=== PATIENT | male | born 1970 | race Caucasian/White ===

== ENCOUNTER 2024-09-25 00:19 | Day surgery (SDC) | payer BC, SELFPAY ==
[2024-09-22 11:00] VITALS: BMI 42.7
--- OUTSIDE RECORDS SUMMARY | 2024-09-25 00:24 | XMS_ITS | Clinical Summary ---
Author Organization [facility] Address [address] [place] [address] Care Team Providers Care Nursing Home Social Worker Name Role Phone Steve Lilly MD Primary Care Provider [phone] Kuldeep Snow MD Unavailable Allergies No known active allergies Medications atorvastatin (LIPITOR) 20 mg tablet Take 1 tablet (20 mg total) by mouth daily 0 04/28/2018 Active folic acid (FOLVITE) 1 mg tablet Take 1 tablet (1 mg total) by mouth daily Active Farxiga 10 mg tablet Take 1 tablet (10 mg total) by mouth daily 09/07/2021 Active thiamine (VITAMIN B1) 100 mg tabletIndication s:Thiamine Deficiency Take 1 tablet (100 mg total) by mouth daily 30 tablet 04/13/2023 Active spironolactone (ALDACTONE) 25 mg tablet Take 1 tablet (25 mg total) by mouth daily 06/22/2023 Active oxyCODONE-acetam inophen (PERCOCET) 10-325 mg per tablet Take 1 tablet by mouth every 4 (four) hours as needed 07/01/2023 Active digoxin (LANOXIN) 250 mcg (0.25 mg) tablet TAKE 1 TABLET BY MOUTH EVERY DAY 90 tablet 05/11/2024 Active apixaban (Eliquis) 5 mg tablet TAKE 1 TABLET BY MOUTH TWICE DAILY 60 tablet 2 05/11/2024 Active furosemide (LASIX) 40 mg tablet Take 1 tablet (40 mg total) by mouth daily 08/10/2024 Active metoprolol tartrate (LOPRESSOR) 50 mg immediate release tablet Take 1 tablet (50 mg total) by mouth 2 (two) times a day 06/17/2024 Active Active Problems Problem Noted Date Diagnosed Date Morbid (severe) obesity due to excess calories 0 07/13/2023 Body mass index 40.0-44.9, adult ([facility]) 07/13 Closed traumatic fracture of ribs of right side with pneumothorax 04/09/2023 Paroxysmal atrial fibrillation 05/28/2022 Syncope and collapse 05/28/2022 Orthostasis 05/28/2022 Chronic systolic heart failure 05/28/2022 NICM (nonischemic cardiomyopathy) 05/28/2022 Esophageal spasm 03/25/2022 Food impaction of esophagus 03/25/2022 Effusion of right knee 03/25/2022 Sprain of medial collateral ligament of right kn ee 03/25/2022 Dizziness 01/06/2022 Right-sided heart failure 12/17/2021 Overview (12/17/2021): Added automatically from request for surgery [id number] Dyspnea on exertion 01/21/2020 Acute pulmonary edema 01/21/2020 Elevated AST (SGOT) 01/21/2020 Weight gain with edema 01/21/2020 Heavy alcohol use 01/21/2020 Macrocytosis 01/21/2020 Alcohol-induced polyneuropathy 07/28/2018 Overview (01/21/2020): Note: Unchanged Esophageal reflux 07/28/2018 Overview (01/21/2020): Note: Unchanged Epigastric pain 05/17/2018 Assessment & Plan (05/17/2018 2:46 PM OPERATING ROOM REGISTERED NURSE): Reviewed prior egd and chart. Had duodenitis and now says that he ran out of the protonix and cannot live without it since he cant eat and has severe abd pain. He desires refill. Will refill the protonix and return prn Morbid obesity with BMI of 40.0-44.9, adult 04/22 Hyperlipidemia associated with type 2 diabetes heraclio razo 04/27/2017 Overview (01/21/2020): Note: Unchanged Psoriasis 02/21/2013 Obstructive sleep apnea syndrome 07/25/2009 Hypertension associated with diabetes 10/09/2008 Encounters Date Type Department Care Team Description 08/29/2024 11:45 AM CDT Office Visit [facility] Medical [facility] Cardiology [address] [place] [address] Kuldeep Snow MD Hypertension associated with diabetes (HCC) (Primary Dx); Hyperlipidemia associated with type 2 diabetes mellitus (HCC); Paroxysmal atrial fibrillation (HCC); NICM (nonischemic cardiomyopathy) (HCC) 08/29/2024 Telephone [facility] Cardiology [address] [facility] [address] [place] [phone] Kuldeep Snow MD 08/11/2024 1:30 PM OPERATING ROOM REGISTERED NURSE Office Visit [facility] Cardiology [address] [place] [address] Kuldeep Snow MD NICM (nonischemic cardiomyopathy) (HCC) (Primary Dx); Hypertension associated with diabetes (HCC); Hyperlipidemia associated with type 2 diabetes mellitus (HCC); Paroxysmal atrial fibrillation (HCC) from Last 3 Months Surgical History Surgery Date Site/Laterality Comments CARDIAC CATHETERIZATION LUMBAR PUNCTURE WO INJECTION, DIAGNOSTIC 04/20/2023 N/A Medical History Medical History Date Comments HTN (hypertension) HLD (hyperlipidemia) Diabetes mellitus type 2 in obese Peripheral neuropathy Morbid obesity (HCC) Sleep apnea On CPAP therapy GERD (gastroesophageal reflux disease) Psoriasis Alcohol abuse Syncope Atrial fibrillation (HCC) Family History Medical History Relation Name Comments Prostate cancer Father Heart disease Mother Relation Name Status Comments Father Mother Alive Social History Tobacco Use Types Packs/Day Years Used Date Smoking Tobacco: Never Smokeless Tobacco: Never Tobacco Cessation:Counseling Given: Not Answered Alcohol Use Standard Drinks/Week Comments Yes 0 (1 standard drink = 0.6 oz pure alcohol) 4 alcoholic drinks per day routinely PHQ-2 Answer Date Recorded PHQ-2 Score 0 02/09/2019 Personal Safety Answer Date Recorded Have you ever been in or are you currently in a harmful physical or emotional relationship or is someone making you feel afraid or unsafe? Denies 04/09/2023 Sex and Gender Information Value Date Recorded Sex Assigned at Not on file Legal Sex Male 2:19 PM OPERATING ROOM REGISTERED NURSE Gender Identity Not on file Sexual Orientation Not on file Obstetrics History Last Filed Vital Signs Vital Sign Reading Time Taken Comments Blood Pressure 104/68 08/29/2024 11:56 AM CDT Pulse 92 08/29/2024 11:56 AM CDT Temperature 36.3 C (97.4 F) 04/12/2023 11:21 AM CDT Respiratory Rate 16 04/12/2023 11:21 AM CDT Oxygen Saturation 94% 08/29/2024 11:56 AM CDT Inhaled Oxygen Concentration - - Weight 147.4 kg (325 lb) 08/29/2024 11:56 AM CDT Height 185.4 cm (6' 1 ) 08/29/2024 11:56 AM CDT Body Mass Index 42.88 08/29/2024 11:56 AM CDT Plan of Treatment Health Maintenance Due Date Last Done Comments Albumin Creatinine Ratio, Urine 1969 Colon Cancer Screening-Colonoscopy 1969 Prostate Cancer Screening-PSA 1969 Dilated Eye Exam 1969 Foot Exam 1969 DTaP/Tdap/Td Vaccine (1 - Tdap) 1980 Hepatitis B Screening 1987 Regular Well Visit/Exam 18-64 1987 Pneumococcal vaccine <65 (1 of 2 - PCV) 1988 Zoster Vaccine (1 of 2) 2019 Depression Screening 05/17/2019 05/17/2018, 05/17/20 18 Hemoglobin A1C 07/24/2020 01/22/2020 Covid-19 Vaccine (3 - 2023-2 5 season) 2024 08/06/2021, 01/18/2021 eGFR 04/10/2024 04/10/2023, 03/22, 03/25/2022, Additional history exists Influenza Vaccine (Season Ended) 2025 Lipid Panel 05/23/2025 05/23/2024, 03/22, 05/28/2022, Additional history exists Hepatitis C Screening Completed 01/22/2020 Medical Devices Implanted Type Area Instructional Leader Device Identifier Shelf Expiration Date Model / Serial / Lot [employer] Angio-Seal Vip 6fr Closere Device [id number] - [id number] Implanted:Qty : 1 on 01/07/2022 by Conrad Jaeger MD at [facility] Other - see comments Right: Maureen GiraldoFineline 10/18/2022 [id number] / / [id number] Procedures Procedure Name Priority Date/Time Associated Diagnosis Comments ELECTROCARDIOGRAM REPORT Routine 025 2:22 PM OPERATING ROOM REGISTERED NURSE Paroxysmal atrial fibrillation (HCC) POCT LIPID PANEL Routine 05/23/2024 2:12 PM OPERATING ROOM REGISTERED NURSE Hyperlipidemia associated with type 2 diabetes mellitus (HCC) EGFR Routine 04/10/2023 5:01 AM CDT HEPATITIS PANEL, ACUTE Routine 0 10:15 AM CDT HEMOGLOBIN A1C Routine 01/22/2020 5:48 AM CDT from Last 3 Months or Most Recently Relevant to Health Maintenance Results * Electrocardiogram Report (08/11/2024 2:22 PM OPERATING ROOM REGISTERED NURSE) Kuldeep Snow MD ECG ORDERABLES Final Res ult * POCT lipid panel (05/23/2024 2:12 PM OPERATING ROOM REGISTERED NURSE) Cholesterol, POC 138 mg/dL HDL, POC 43 mg/dL Triglycerides, POC 171 mg/dL LDL Cholesterol POC 61 mg/dL Chol/HDL Ratio, POC 3.2 Non-HDL Cholesterol, POC 95 mg/dL Cholesterol Total, POC 138 mg/dL Capillary blood 05/23/2024 2 :12 PM OPERATING ROOM REGISTERED NURSE Kuldeep Snow MD POINT OF CARE TEST ORDERA BLES Final Result * eGFR (04/10/2023 5:01 AM CDT) eGFR >90 90 - 130 mL/min/1. 73 m2 Comment: Interpretive Data Reference Interval Normal >/= 90 mL/min/1.73m2 Mildly decreased* 60 - 89 mL/min/1.73m2 Mildly to moderately decreased 45 - 59 mL/min/1.73m2 Moderately to severely decreased 30 - 44 mL/min/1.73m2 Severely decreased 15 - 29 mL/min/1.73m2 Kidney Failure < 15 mL/min/1.73m2 *Relative to young adult level Estimated glomerular filtration rate is determined by the 2020 CKD-EPI equation recommended by the National Kidney Foundation (A Unifying Approach to GFR Estimation: Recommendations of the NKF-ASK Task Force on Reassessing the Inclusion of Race in Diagnosing Kidney Disease, JASN 2020). The CKD-EPI equation should not be used for patients with unstable renal function and has not been validated in children and those over 70. Current interpretive data was last reviewed 2021. Blood 04/10/2023 5:01 AM CDT 04/10/2023 5:28 AM CDT us Lino Mckenna MD LAB BLOOD ORDERABLES Qi mednosa Result [facility] Department [place] [address] * Hepatitis panel, acute (01/22/2020 10:15 AM CDT) Hep A IgM Nonreactive Nonreactive [facility] Comment: Interpretive Data: If Hep A IgM Ab is reported as Equivocal, a new sample should be drawn in two weeks for testing. Current interpretive data was last revised on 19. Hep B core IgM Nonreactive Nonreactive [facility] Comment: Interpretive Data If HepB Core IgM Ab is reported as Equivocal, a new sample should be drawn in two weeks for testing. Current interpretive data was last revised on 19. Hep C Ab Nonreactive Nonreactive [facility] Comment: Interpretive Data Nonreactive: Antibodies to HCV not detected. Does NOT exclude the possibility of recent exposure to HCV. Equivocal: Equivocal for HCV antibodies. Supplemental molecular testing will be automatically performed to determine infection status in accordance with current CDC screening recommendations. Reactive: Positive for HCV antibodies. This may represent current or past HCV infection. Supplemental molecular testing will be automatically performed to determine current infection status in accordance with current CDC screening recommendations. Interpretive data was last revised on 2019. HepBsAg Nonreactive Nonreactive [facility] Blood specimen (specimen) 01/22/2020 10:15 AM CDT 01/22/2020 11:17 AM CDT Daniel Gunn MD LAB MICROBIOLOGY - GENER AL ORDERABLES Final Result Performing Organization Address [facility] de Phone Number [facility] [address] [facility] [place] [address] * (ABNORMAL) Hemoglobin A1c (01/22/2020 5:48 AM CDT) Hgb A1C 7.0(H) 4.0 - 5.6 % [facility] Estimated Average Glucose 154 mg/dL [facility] Comment: The ADA recommends reporting an estimated Average Glucose (eAG) with all Hemoglobin A1c results using the equation derived from a study of 507 normal and diabetic adults. Minority populations were underrepresented and children were not included. (Diabetes Care 31:1032-4382, 2008). The eAG is not equivalent to a fasting glucose. Blood specimen (specimen) 01/22/2020 5:48 AM CDT 01/22/2020 5:48 AM CDT Daniel Gunn MD LAB BLOOD ORDERABLES Fin al Result Performing Organization Address [facility] de Phone Number [facility] [address] [place] [address] from Last 3 Months or Most Recently Relevant to Health Maintenance Insurance [facility] [place] Advance Directives For more information, please contact: [phone] * Full Code (Latest Code Status on File) Date Activated Date Inactivated Comments 04/09/2023 12:20 PM 04/12/2023 8:07 PM * Full Code Date Activated Date Inactivated Comments 01/06/2022 4:24 PM 01/08/2022 9:22 PM * Full Code Date Activated Date Inactivated Comments 01/21/2020 7:29 PM 01/23/2020 3:28 PM Care Teams Nursing Home Social Worker Relationship Specialty Start Date End Date Steve Lilly MD [address] [place] [address] PCP - General 10/19/16 Kuldeep Snow MD [address] [address] Consulting Physician Cardiology 04/12/23
--- OUTSIDE RECORDS SUMMARY | 2024-09-25 00:24 | XMS_ITS | Referral Summary ---
Author Organization [facility] Address [address] [place] [address] Care Team Providers Care Hoe Runner Name Role Phone Steve Lilly MD Primary Care Provider Kuldeep Snow MD Unavailable Encounters Date Type Department Care Team Description 08/29/2024 Telephone [facility] Medical [facility] Cardiology [address] [facility] [address] [place] [phone] uKldeep Snow MD 08/29/2024 11:45 AM CDT Office Visit [facility] Cardiology [address] [place] [address] [address] [place] [phone] Kuldeep Snow MD Hypertension associated with diabetes (HCC) (Primary Dx); Hyperlipidemia associated with type 2 diabetes mellitus (HCC); Paroxysmal atrial fibrillation (HCC); NICM (nonischemic cardiomyopathy) (HCC) 08/11/2024 1:30 PM CAGE LOADER Office Visit [facility] Cardiology [address] [place] [address] [address] [place] [phone] Kuldeep Snow MD NICM (nonischemic cardiomyopathy) (HCC) (Primary Dx); Hypertension associated with diabetes (HCC); Hyperlipidemia associated with type 2 diabetes mellitus (HCC); Paroxysmal atrial fibrillation (HCC) from Last 3 Months Allergies No known active allergies Medications atorvastatin [...] 0 07/13/2023 Body mass index 40.0-44.9, adult ([facility]) 07/13 Closed traumatic fracture of ribs of [...] (12/17/2021): Added automatically from request for surgery [id number] Dyspnea on exertion 01/21/2020 Acute pulmonary edema 01/21/2020 Elevated AST (SGOT) 01/21/2020 Weight gain with edema 01/21/2020 Heavy alcohol use 01/21/2020 Macrocytosis 01/21/2020 Alcohol-induced polyneuropathy 07/28/2018 Overview (01/21/2020): Note: Unchanged Esophageal reflux 07/28/2018 Overview (01/21/2020): Note: Unchanged Epigastric pain 05/17/2018 Assessment & Plan (05/17/2018 2:46 PM CAGE LOADER): Reviewed prior egd and chart. Had duodenitis [...] syndrome 07/25/2009 Hypertension associated with diabetes 10/09/2008 Social History Tobacco Use Types Packs/Day Years [...] on file Legal Sex Male 2:19 PM CAGE LOADER Gender Identity Not on file Sexual Orientation Not on file Last Filed Vital Signs Vital Sign Reading [...] 08/29/2024 11:56 AM CDT Plan of Treatment Not on file Medical Devices Implanted Type Area Outpatient Interviewing Clerk Device Identifier Shelf Expiration Date Model / Serial / Lot [employer] Angio-Seal Vip 6fr Closere Device [id number] - [id number] Implanted:Qty : 1 on 01/07/2022 by Conrad Jaeger MD at [facility] Other - see comments Right: Groin [employer] 10/18/2022 [id number] / / [id number] Procedures Procedure Name Priority Date/Time Associated Diagnosis Comments ELECTROCARDIOGRAM REPORT Routine 025 2:22 PM CAGE LOADER Paroxysmal atrial fibrillation (HCC) POCT LIPID PANEL Routine 05/23/2024 2:12 PM CAGE LOADER Hyperlipidemia associated with type 2 diabetes mellitus (HCC) EGFR Routine 04/10/2023 5:01 AM CDT HEPATITIS PANEL, ACUTE Routine 0 10:15 AM CDT HEMOGLOBIN A1C Routine 01/22/2020 5:48 AM CDT from Last 3 Months or Most Recently Relevant to Health Maintenance Results * Electrocardiogram Report (08/11/2024 2:22 PM CAGE LOADER) us Kuldeep Snow MD ECG ORDERABLES Final Res ult * POCT lipid panel (05/23/2024 2:12 PM CAGE LOADER) Cholesterol, POC 138 mg/dL HDL, POC 43 mg/dL Triglycerides, POC 171 mg/dL LDL Cholesterol POC 61 mg/dL Chol/HDL Ratio, POC 3.2 Non-HDL Cholesterol, POC 95 mg/dL Cholesterol Total, POC 138 mg/dL Capillary blood 05/23/2024 2 :12 PM CAGE LOADER us Kuldeep Snow MD POINT OF CARE TEST [...] Lino Mckenna MD LAB BLOOD ORDERABLES Qi l Result [facility] Department [place] [address] * Hepatitis panel, acute (01/22/2020 10:15 AM CDT) Hep A IgM Nonreactive Nonreactive [facility] Comment: Interpretive Data: If Hep A IgM Ab is reported as Equivocal, a new sample should be drawn in two weeks for testing. Current interpretive data was last revised on 19. Hep B core IgM Nonreactive Nonreactive [facility] Comment: Interpretive Data If HepB Core IgM Ab is reported as Equivocal, a new sample should be drawn in two weeks for testing. Current interpretive data was last revised on 19. Hep C Ab Nonreactive Nonreactive [facility] Comment: Interpretive Data Nonreactive: Antibodies to HCV [...] last revised on 2019. HepBsAg Nonreactive Nonreactive [facility] Blood specimen (specimen) 01/22/2020 10:15 AM CDT 01/22/2020 11:17 AM CDT Daniel Gunn MD LAB MICROBIOLOGY - GENER AL ORDERABLES Final Result Performing Organization Address [facility] de Phone Number [facility] [address] [place] [address] * (ABNORMAL) Hemoglobin A1c (01/22/2020 5:48 AM CDT) Hgb A1C 7.0(H) 4.0 - 5.6 % [facility] Estimated Average Glucose 154 mg/dL [facility] Comment: The ADA recommends reporting an estimated Average Glucose (eAG) with all Hemoglobin A1c results using the equation derived from a study of 507 normal and diabetic adults. Minority populations were underrepresented and children were not included. (Diabetes Care 31:9744-2969, 2008). The eAG is not equivalent to a fasting glucose. Blood specimen (specimen) 01/22/2020 5:48 AM CDT 01/22/2020 5:48 AM CDT Daniel Gunn MD LAB BLOOD ORDERABLES Fin al Result Performing Organization Address [facility] Co de Phone Number [facility] [address] [place] [address] from Last 3 Months or Most Recently Relevant to Health Maintenance [place] Advance Directives For more information, please contact: [phone] * Full Code (Latest Code Status on File) Date Activated Date Inactivated Comments 04/09/2023 12:20 PM 04/12/2023 8:07 PM * Full Code Date Activated Date Inactivated Comments 01/06/2022 4:24 PM 01/08/2022 9:22 PM * Full Code Date Activated Date Inactivated Comments 01/21/2020 7:29 PM 01/23/2020 3:28 PM Care Teams Hoe Runner Relationship Specialty Start Date End Date tSeve Lilly MD [address] [facility] [place] [address] PCP - General 10/19/16 [place] [address] [place] [address] [place] [address] Consulting Physician Cardiology 04/12/23
--- OUTSIDE RECORDS SUMMARY | 2024-09-25 00:24 | XMS_ITS | Encounter Summary ---
Author Organization [facility] Address [address] [facility] [place] [address] Phone Care Team Providers Care Lap Layer Name Role Phone Steve Lilly MD Primary Care Provider Hayde Otto APRN, CONSULTANT RN Unavailable [phone] Reason for Visit * Reason Comments Medication Refill Encounter Details Date Type Department Care Team (Late st Contact Info) Description 05/28/2022 Refill [facility] - Neurology - [place] [address] [place] [phone] Hayde Otto APRN, CONSULTANT RN [address] [place] [address] Medication Refill Social History Tobacco Use Types Packs/Day Years Used Date Smoking Tobacco: Never Smokeless Tobacco: Current Alcohol Use Standard Drinks/Week Comments Yes 0 (1 standard drink = 0.6 oz pure alcohol) Patient used to drink alot, but now only about 8-10 oz before bed. Sexually Active Control Partners Comments Not Currently Female Sex and Gender Information Value Date Recorded Sex Assigned at Not on file Legal Sex Male 3:19 PM CDT Gender Identity Not on file Sexual Orientation Not on file documented as of this encounter Plan of Treatment Not on file documented as of this encounter Goals Goal Patient Goal Type Associated Problems Recent Progress Patient-Stated? Author ANXIETY Anxiety On track(2020 4:11 PM CDT) No Silvia Cabezas, DELIVERY TABLE OPERATOR Note: to have reduction of anxiety and depression symptoms. Goal Reviewed with: patient today Readiness to change: Ready to change Department associated with goal: [facility] Steps to achieve goal: to attend, at least twice monthly, counseling sessions for 10-12 sessions. to identify, verbalize and process at least three contributing factors/triggers to anxiety and depression. to identify and verbalize at least three actions/skills to prevent and/or cope with anxiety and depression. to put into action, at least one time weekly, for one month, an action/skill to prevent and or cope with anxiety and depression. I need to get back to driving. Behavioral Health On track(2020 4:11 PM CDT) Yes Irene Bah LCSW Note: Goal Reviewed with: patient today Readiness to change: Ready to change Department associated with goal: [facility] Steps to achieve goal: will identify at least two coping skills/activities/habits that have helped to manage anxiety in the past. will identify at least three new coping skills/activities/habits that may help to prevent and/or cope with anxiety. 3. will identify a plan to implement coping skills and follow this plan for two weeks and evaluate the impact on anxiety. 4. Will attend individual and/or group sessions for 10-12 weeks or as treatment plans need to be addressed. documented as of this encounter Visit Diagnoses Diagnosis Diabetic polyneuropathy associated with type 2 diabetes mellitus (HCC) documented in this encounter Care Teams Lap Layer Relationship Specialty Start Date End Date Steve Lilly MD [address] [place] [address] PCP - General Family Medicine 11/21/20 Hayde Otto APRN, CONSULTANT RN [address] [place] [address] Nurse Practitioner Advanced Practice Nurse 03/31/22 documented as of this encounter
--- OUTSIDE RECORDS SUMMARY | 2024-09-25 00:24 | XMS_ITS | Clinical Summary ---
Author Organization [facility] Address [address] [place] [id number] Care Team Providers Care Precipitator Operator Name Role Phone None, Provider MD Primary Care Provider Unavaila ble Allergies No known active allergies Medications apixaban (ELIQUIS) 5 MG tablet Take 1 tablet (5 mg total) by mouth 2 (two) times daily. Active spironolactone (ALDACTONE) 25 MG tablet Take 1 tablet (25 mg total) by mouth daily. Active folic acid (FOLVITE) 1 MG tablet Take 1 tablet (1 mg total) by mouth daily. Active insulin glargine (LANTUS) 100 UNIT/ML injection (VIAL) Inject 20 Units into the skin daily. 10 mL 1 05/05/20 Active insulin lispro (HUMALOG) 100 UNIT/ML injection (VIAL) Inject 0-6 Units into the skin 4 (four) times daily before meals and nightly. From sliding scale insulin subcut med order set - For TDI less than 30 units Blood Glucose: (Less than 70, Initiate Hypoglycemia Standing Orders) (70 - 149, administer 0 units) (150 - 199, administer 1 units) (200 - 249, administer 2 units) (250 - 299, administer 3 units) (300 - 349, administer 4 units) (Greater than 349, administer 6 units and Call Physician) 10 mL 1 05/05/20 Active ipratropium-albute rol (DUONEB) 0.5-2.5 (3) MG/3ML Solution Take 3 mLs by nebulization every 4 (four) hours as needed. 360 mL 1 05/05/20 23 Active digoxin (LANOXIN) 0.125 MG tablet Take 1 tablet (0.125 mg total) by mouth daily. 30 tablet 1 05/05/20 23 Active OLANZapine (ZYPREXA ZYDIS) 5 MG TABLET DISPERSIBLE disintegrating tablet Take 1 tablet (5 mg total) by mouth every 6 (six) hours as needed for Agitation. 10 each 05/05/20 Active traMADol (ULTRAM) 50 MG tabletIndications: Chronic Pain Take 1 tablet (50 mg total) by mouth every 8 (eight) hours as needed for Pain. Indications: Chronic Pain 21 tablet 05/05/20 Active metoprolol tartrate (LOPRESSOR) 25 MG tablet Take 1 tablet (25 mg total) by mouth 2 (two) times daily. 60 tablet 1 05/05/20 Active multi vitamin/minerals (THERA-M ENHANCED) tablet Take 1 tablet by mouth daily. 30 tablet 1 05/05/20 Active torsemide (DEMADEX) 20 MG tablet Take 0.5 tablets (10 mg total) by mouth daily. 30 tablet 1 05/06/20 Active Active Problems Problem Noted Date Diagnosed Date Acute encephalopathy 04/17/2023 Social History Tobacco Use Types Packs/Day Years Used Date Smoking Tobacco: Former Cigarettes Smokeless Tobacco: Never [facility] Oppaities Answer Date Recorded In the past 12 months has [employer], [employer], or water [employer] threatened to shut off services in your home? No 05/03/2023 Humiliation, Afraid, Rape, and Kick questionnair e Answer Date Recorded Within the last year, have y ou been afraid of your partner or ex-partner? No 04/21/2023 Within the last year, have y ou been humiliated or emotionally abused in other ways by your partner or ex-partner? No Within the last year, have y ou been kicked, hit, slapped, or otherwise physically hurt by your partner or ex-partner? No 04/21/2023 Within the last year, have y ou been raped or forced to have any kind of sexual activity by your partner or ex-partner? No 04/21/2023 Overall Financial Resource Strain (CARDIA) Answe r Date Recorded How hard is it for you to pa y for the very basics like food, housing, medical care, and heating? Not hard at all 04/21/2023 Hunger Vital Sign Answer Date Recorded Within the past 12 months, y ou worried that your food would run out before you got the money to buy more. Never true 11/01/20 23 Within the past 12 months, t he food you bought just didn't last and you didn't have money to get more. Never true 04/21/2023 PRAPARE - Transportation Answer Date Re corded In the past 12 months, has l ack of transportation kept you from medical appointments or from getting medications? No 06/2022 In the past 12 months, has l ack of transportation kept you from meetings, work, or from getting things needed for daily living? No 04/21/2023 Housing Stability Vital Sign Answer Robel e Recorded In the last 12 months, was t here a time when you were not able to pay the mortgage or rent on time? No 04/21/2023 In the last 12 months, how many places have you lived? 1 04/21/2023 In the last 12 months, was t here a time when you did not have a steady place to sleep or slept in a long-term (including now)? No 04/21/2023 Sex and Gender Information Value Date Recorded Sex Assigned at Not on file Legal Sex Male 10:48 PM CDT Gender Identity Not on file Sexual Orientation Not on file Last Filed Vital Signs Vital Sign Reading Time Taken Comments Blood Pressure 129/63 05/07/2023 8:04 AM MULE DEVELOPER Pulse 84 05/07/2023 8:04 AM MULE DEVELOPER Temperature 36.7 C (98.1 F) 05/07/2023 8:04 AM MULE DEVELOPER Respiratory Rate 18 05/07/2023 8:04 AM MULE DEVELOPER Oxygen Saturation 93% 05/07/2023 8:04 AM MULE DEVELOPER Inhaled Oxygen Concentration - - Weight 155 kg (341 lb 11.4 oz) 05/06/2023 5:00 A M MULE DEVELOPER Height 182.9 cm (6' 0.01 ) 04/17/2023 4:21 AM CD T Body Mass Index 46.33 04/17/2023 4:21 AM CDT Plan of Treatment Health Maintenance Due Date Last Done Comments Colorectal Cancer Screening Colonoscopy (10 Years) 1969 Annual Physical 1972 Hepatitis C 1987 DTaP, Tdap and Td Vaccines ( 1 - Tdap) 1988 Hepatitis B Vaccines (1 of 3 - 19+ 3-dose series) 1988 Zoster Vaccines (1 of 2) 2019 COVID-19 Vaccine (3 2023-2 5 season) 2024 08/06/2021, 01/18/2021 Meningococcal B Vaccine Aged Out No l onger eligible based on patient's age to complete this topic Meningococcal Vaccine Aged Out No daniel catarina eligible based on patient's age to complete this topic Pneumococcal Vaccine: Pediatrics (0 to 5 Years) and At-Risk Patients (6 to 64 Years) Aged Out No longer eligible b ased on patient's age to complete this topic RSV Immunizations Under 20 Months Aged Out No longer eligible b ased on patient's age to complete this topic Goals Goal Patient Goal Type Associated Problems Recent Progress Patient-Stated? Author Patient will return to prior living situation and remain independent in ADLs upon discharge from hospital Lifestyle No Dawn Bills, RN Insurance Advance Directives Documents on File Type Date Recorded Patient Assistant Business Manager Expl anation Advance Directives and Living Will 08/09/2023 12:31 PM [employer] 02/17/23 * Full Code (Latest Code Status on File) Date Activated Date Inactivated Comments 04/17/2023 4:14 AM 05/07/2023 2:15 PM Care Teams Precipitator Operator Relationship Specialty Start Date End Date None, Provider, PCP - General UNKNOWN PHYSICIAN SPECIALTY 04/17/23
--- OUTSIDE RECORDS SUMMARY | 2024-09-25 00:24 | XMS_ITS | Clinical Summary ---
Author Organization [facility] Address [address] [place] [address] Phone Care Team Providers Care Sharepoint Analyst Name Role Phone Steve Lilly MD Primary Care Provider Hayde Otto APRN, RECLAIMER Unavailable [phone] Allergies No known active allergies Medications buPROPion (WELLBUTRIN) 300 MG TABLET SR 24 HR XL tablet Take 300 mg by mouth every morning. 10/29/19 21 Active atorvastatin (LIPITOR) 20 MG Tablet Take 20 mg by mouth daily. Active DULoxetine (CYMBALTA) [address] Particles Take 60 mg by mouth daily. Active Dapagliflozin Propanediol (Farxiga) 10 MG Tablet Take by mouth. Activ e folic acid (FOLVITE) 1 MG Tablet Take 1 mg by mouth daily. Active Semaglutide,0.25 or 0.5MG/DOS, (Ozempic, 0.25 or 0.5 MG/DOSE,) 2 MG/1.5ML Solution Pen-injector by Subcutaneous route. Active torsemide (DEMADEX) 20 MG Tablet Take 20 mg by mouth daily. Active Potassium Chloride ER (KLORCON) 20 MEQ Tablet Controlled Release TAKE 1 TABLET BY MOUTH TWICE A DAY 09/26/19 22 Active pregabalin (LYRICA) 200 MG CapsuleIndications :Diabetic polyneuropathy associated with type 2 diabetes mellitus (HCC) Take 200 mg by mouth 2 times daily. Active baclofen (LIORESAL) 5 MG Tablet TAKE 1 TABLET BY MOUTH EVERY 8 HOURS NEEDED TO RELAX THE ESOPHAGUS 03/25/20 Active chlordiazePOXIDE (LIBRIUM) 25 MG Capsule TAKE 1 CAPSULE BY MOUTH EVERYDAY AT BEDTIME 03/06/20 Active digoxin (LANOXIN) 250 MCG Tablet Take by mouth daily. 03/11/20 Active Entresto 24-26 MG Tablet Take 1 Tablet by mouth 2 times daily. 02/14/20 Active metoprolol Succinate (TOPROL-XL) 100 MG TABLET SR 24 HR Take 100 mg by mouth daily. 02/21/20 Active Eliquis 5 MG Tablet Take 5 mg by mouth 2 times daily. 03/10/20 Active pantoprazole (PROTONIX) 40 MG Tablet Delayed Response Take 40 mg by mouth daily. 03/25/20 Active amitriptyline (ELAVIL) 25 MG Tablet TAKE 1 TO 3 TABS BY MOUTH AT NIGHT NEEDED 04/07/20 Active buPROPion, Smoking Deter, (ZYBAN) 150 MG TABLET SR 12 HR Take 150 mg by mouth. Active Cyanocobalamin (VITAMIN B-12) 1000 MCG Tablet Take 1,000 mcg by mouth. Active potassium chloride SA (KLORCON M) 20 MEQ Tablet Controlled Release Take 20 mEq by mouth. Active spironolactone (ALDACTONE) 25 MG Tablet TAKE 1 TABLET (25 MG TOTAL) BY MOUTH DAILY. 02/14/20 Active triamcinolone (KENALOG) 0.1 % Cream Triamcinolone Acetonide 0.1% External Cream QTY: 45 gram Days: 30 Refills: 0 Written: 10/22/20 Patient Instructions: APPLY TO AFFECTED AREA ON HAND TWICE A DAY 10/23/19 Active Alpha-Lipoic Acid 600 MG CapsuleIndications :Diabetic polyneuropathy associated with type 2 diabetes mellitus (HCC) TAKE 1 CAPSULE BY MOUTH EVERY DAY 30 Capsule 2 05/29/20 Active midodrine (PROAMATINE) 2.5 MG Tablet Take 2.5 mg by mouth 3 times daily. 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 Family History Medical History Relation Name Comments Heart Attack Mother Alisa Relation Name Status Comments Brother Mitch Alive Father Ivan Alive Mother Alisa Alive Sister Hayde Alive Social History Tobacco Use Types Packs/Day Years Used Date Smoking Tobacco: Never Smokeless Tobacco: Current Tobacco Cessation:Ready to Q uit: Not Asked; Counseling Given: Not Answered Alcohol Use Standard Drinks/Week [...] Sign Reading Time Taken Comments Blood Pressure 120/80 06/02/2022 3:27 PM ELOCUTION TEACHER Pulse 72 06/02/2022 3:27 PM ELOCUTION TEACHER Temperature 36.5 C (97.7 F) 06/02/2022 3:27 PM ELOCUTION TEACHER Respiratory Rate 18 06/02/2022 3:27 PM ELOCUTION TEACHER Oxygen Saturation 96% 06/02/2022 3:27 PM ELOCUTION TEACHER Inhaled Oxygen Concentration - - Weight 146.7 kg (323 lb 8 oz) 06/02/2022 3:27 PM ELOCUTION TEACHER Height 185.4 cm (6' 1 ) 06/02/2022 3:27 PM ELOCUTION TEACHER Body Mass Index 42.68 06/02/2022 3:27 PM ELOCUTION TEACHER Plan of Treatment Health Maintenance Due Date Last Done Comments Hepatitis C Virus (HCV) Screening 1969 TdaP Immunization 1969 Hepatitis B Immunization (1 of 3 - 19+ 3-dose series) 1988 Colonoscopy 2014 Colorectal Cancer Screening 2014 Cologuard 2019 Immunochemical Fecal Occult Blood 2019 Pneumococcal Immunization (5 0+ years) (1 of 1 - PCV) 2019 Zoster Immunization (1 of 2) 2019 Influenza Immunization (#1) 2024 SARS-COV-2 Immunization (2023- season) 2024 08/06/2021, 01/18/2021 PSA Discussion 2024 Respiratory Syncytial Virus (RSV) Immunization (Adult) (1 - 1-dose 75+ series) 2044 Meningococcal Immunization (ACWY) Aged Out No longer eligible b ased on patient's age to complete this topic Rotavirus Immunization Aged Out No lo nger eligible based on patient's age to complete this topic Goals Goal Patient Goal Type Associated Problems Recent Progress Patient-Stated? Author ANXIETY Anxiety On track(2020 4:11 PM CDT) No Silvia Cabezas LCSW Note: to have reduction of anxiety and depression symptoms. Goal Reviewed with: patient today Readiness to change: Ready to change Department associated with goal: [facility] Steps to achieve goal: [...] Ready to change Department associated with goal: [facility] Steps to achieve goal: [...] as treatment plans need to be addressed. Procedures Procedure Name Priority Date/Time Associated Diagnosis Comments PULMONARY TEST 08/14/2024 12:00 AM ELOCUTION TEACHER from Last 3 Months Results * PULMONARY TEST (08/14/2024 12:00 AM ELOCUTION TEACHER) 08/14/2024 us Provider Scan PFT ORDERABLES Final Result SCAN from Last 3 Months Insurance [facility] Care Teams Sharepoint Analyst Relationship Specialty Start Date End Date Steve Lilly MD [address] [place] [id number] PCP - General Family Medicine 11/21/20 Hayde Otto, FIGURE REFINISHER AND REPAIRER, RECLAIMER [address] [place] [address] Nurse Practitioner Advanced Practice Nurse 03/31/22
--- OUTSIDE RECORDS SUMMARY | 2024-09-25 00:24 | XMS_ITS | Clinical Summary ---
Author Organization [facility] Address [address] [place] [address] Care Team Providers Care Labor Service Representative Name Role Phone Unavailable Primary Care Provider Unavailabl e Source Comments [facility],non-owned Affiliates and Associated Physician Practices is amultiple site organization consisting of ambulatory clinics and hospital sitesin [place], [place], [place] and [place]. This disclosure is being madepursuant to the Care Everywhere program and may not contain all information available regarding this patient. Last updated 18.[facility] Social History Tobacco Use Types Packs/Day Years Used Date Smoking Tobacco: Never Assessed Sex and Gender Information Value Date Recorded Sex Assigned at Not on file Gender Identity Not on file Sexual Orientation Not on file Plan of Treatment Health Maintenance Due Date Last Done Comments COLOGUARD (AGES 45-75) - COL ON CA SCREENING 1969 COLON MONITORING 1969 COLONOSCOPY - COLON CA SCREENING 1969 CT COLONOGRAPHY - COLON CA SCREENING 1969 Colorectal Cancer Screening 1969 FIT - COLON CA SCREENING 1969 FLEX SIG - COLON CA SCREENING 1969 LIPID TESTING 1969 HIV SCREENING 1984 HEPATITIS C SCREENING 04/12/1987 DTAP/TDAP/TD VACCINES (1 - Tdap) 1988 HEPATITIS B VACCINE (1 of 3 - 19+ 3-dose series) 1988 PNEUMOCOCCAL VACCINE 50+ (1 of 1 - PCV) 2019 ZOSTER VACCINE (1 of 2) 2019 COVID-19 VACCINE ( - 2023-2 5 season) 2024 INFLUENZA VACCINE (#1) 2024 DEPRESSION SCREENING 06/21/2024 HIB VACCINE Aged Out No longer eligi ble based on patient's age to complete this topic HPV VACCINE Aged Out No longer eligi ble based on patient's age to complete this topic MENINGOCOCCAL (Group B) VACC INE SHARED DECISION-MAKING Aged Out No longer eligibl e based on patient's age to complete this topic MENINGOCOCCAL GROUPS A/C/Y/W VACCINE Aged Out No longer eligible b ased on patient's age to complete this topic PNEUMOCOCCAL VACCINE Aged Out No long er eligible based on patient's age to complete this topic
--- NOTE | 2024-09-25 09:00 | ECG_ITS ---
Test Date: 2024-09-25 09:20:54 Measurements Intervals [place] Rate: 99 P: -87 NC: 273 QRS: -80 QRSD: 118 T: 74 QT: 364 QTc: 467 Interpretive Statements ATRIAL FLUTTER/TACHYCARDIA INCOMPLETE LEFT BUNDLE BRANCH BLOCK ANTEROLATERAL INFARCT, AGE INDETERMINATE INFERIOR INFARCT, AGE INDETERMINATE BORDERLINE ST-T WAVE ABNORMALITY- HIGH LATERAL LEADS BASELINE ARTIFACT- I, II, III, AVR, AVL, AVF, V1-V3 ABNORMAL ECG No previous ECG available for comparison Electronically Signed On 09-25-2024 09:27:03 CDT by Gualberto Chang D.O.
[2024-09-25 09:41] VITALS: BP 109/84; PULSE 91; RESP 14; TEMP 36.2; O2SAT 97
[2024-09-25 09:49] LABS: Anion Gap 10 mmol/L (4-12); Blood Urea Nitrogen 10 mg/dL (9-20); Calcium 9.2 mg/dL (8.4-10.2); Carbon Dioxide 28 mmol/L (22-30); Chloride 99 mmol/L (98-107); Estimated CRCL calculation 193 ml/min; Estimated Glomerular Filt Rate > 60; Glucose 154 mg/dL (65-110); Magnesium 1.8 mg/dL (1.6-2.3); Potassium 4.2 mmol/L (3.4-5.0); Sodium 137 mmol/L (137-145)
--- NOTE | 2024-09-25 10:10 | P.SEDATION_ITS ---
Moderate Sedation Note-Pt Data Patient Data Diagnosis: Atrial fibrillation Present Complaint: Atrial fibrillation Procedure to be performed/Plan: Electrical cardioversion Allergies Allergy/AdvReac Type Severity Reaction Status Date / Time No Known Allergies Allergy Verified 09/22/24 09:48 Home Medications ?Medication ?Instructions ?Recorded ?Confirmed ?Type apixaban 5 mg tablet (Eliquis) 5 mg PO BID 09/22/24 09/22/24 History atorvastatin 20 mg tablet 20 mg PO DAILY 09/22/24 09/22/24 History dapagliflozin propanediol 10 mg 10 mg PO DAILY 09/22/24 09/22/24 History tablet (Farxiga) digoxin 250 mcg (0.25 mg) tablet 0.25 mg PO DAILY 09/22/24 09/22/24 History folic acid 1 mg tablet 1 mg PO DAILY 09/22/24 09/22/24 History furosemide 40 mg tablet 40 mg PO DAILY 09/22/24 09/22/24 History metoprolol tartrate 50 mg tablet 50 mg PO BID 09/22/24 09/22/24 History oxycodone-acetaminophen 10 mg-325 1 tablet PO Q4H PRN pain 09/22/24 09/22/24 History mg tablet spironolactone 25 mg tablet 25 mg PO DAILY 09/22/24 09/22/24 History thiamine HCl (vitamin B1) 100 mg 100 mg PO DAILY 09/22/24 09/22/24 History capsule Current Medications: Active Medications Sodium Chloride (Normal Saline Iv) 1,000 mls @ 30 mls/hr IV CONT .Q24H JOSE ANTONIO Sedation/Anesthesia: No previous sedation/anesthesia problems (including family history). [facility] Social History Social History Smoking status: Never smoker Second hand tobacco smoke exposure: No Alcohol intake: current Substance use: never Substance use type: does not use Living arrangements: with family Spiritual care concerns: No Mod Sed Physical Exam Physical Exam Pre Procedural Exam: Normal: Appearance, Eyes, Ears, Nose, Neck, Throat, Airway, Lungs, Heart Size, Neuro Exam, Abdomen and Extremities and Variation: Heart Rate (Tachycardia), Heart Rhythm (Irregular irregular) and Skin (Excoriations noted) Hours since solid foods: 12 Hours since liquid intake: 12 Mallampati Classification: class II Internal Medicine - PN: Obj Da Vital Signs Vital Signs: Vital Signs - 24 hr 09/25/24 09:41 Temperature 36.2 C L Pulse Rate 91 Respiratory Rate 14 Blood Pressure 109/84 Pulse Oximetry 97 Oxygen Delivery Room Air Meds/Results Medications: Active Medications Generic Name Dose Route Start Last Admin Trade Name Kyrieq PRN Reason Stop Dose Admin Sodium Chloride 1,000 mls @ 30 mls/hr 09/25/24 09:00 Normal Saline Iv IV CONT .Q24H JOSE ANTONIO Labs 09/25/24 09:36 Labs: Laboratory Results - last 24 hr 09/25/24 09:36 Sodium 137 Potassium 4.2 Chloride 99 Carbon Dioxide 28 Anion Gap 10 BUN 10 Creatinine 0.55 L Estim Creat Clear Calc 193 Estimated GFR > 60 Glucose 154 H Calcium 9.2 Magnesium 1.8 ASA Classification/Sedation ASA Classification/Sedation ASA Class: II Emergent: No Risks: Risks, benefits and alternatives explained and patient/family accepted plan for sedation. Patient re-evaluated immediately prior to sedation.
--- NOTE | 2024-09-25 10:12 | WPDHPUPDATE1 ---
History and Physical Update Update Date/Time: 09/25/24 10:12 Subjective: Here for atrial fibrillation/cardioversion. Objective: Irregular irregular rhythm Assessment: Atrial fibrillation with rapid ventricular response Sleep apnea Morbid obesity CHF Plan: Outpatient elective cardioversion with the assistance of Anesthesia History and Physical has been reviewed, including an updated exam of the patient. There are NO changes in the patient's condition. Risks, benefits, and alternatives have been discussed and questions answered. Patient agrees to proceed with procedure.
[2024-09-25 10:30] VITALS: BP 112/75; PULSE 66; RESP 16; O2SAT 97
--- NOTE | 2024-09-25 10:30 | ECG_ITS ---
Test Date: 2024-09-25 10:21:05 Measurements Intervals [place] Rate: 65 P: 0 GA: 242 QRS: -76 QRSD: 114 T: 62 QT: 436 QTc: 455 Interpretive Statements ATRIAL FLUTTER/TACHYCARDIA WITH NORMAL VENTRICULAR RESPONSE LEFT BUNDLE BRANCH BLOCK BASELINE ARTIFACT- I, II, III, AVR, AVL, AVF, V1-V6 ABNORMAL ECG Compared to ECG 09/25/2024 09:20:54 HEART RATE HAS DECREASED Electronically Signed On 09-25-2024 10:43:46 CDT by Gualberto Chang D.O.
--- NOTE | 2024-09-25 10:39 | P.PNAN_ITS ---
Anes - Initial Pre Proc Eval Procedure: Operation Date: 09/25/24 10:30 Proposed Procedures p Electrical Cardioversion - Kuldeep Snow MD Date/Time: 09/25/24 10:39 Surgeon: Kuldeep Snow MD Pre Op Diagnosis: a-fib Patient Data Age: 54 Gender: M Height: 1.85 m Weight: 147 kg Last Vital Signs Temp 97.1 F L 09/25/24 09:41 Pulse 91 09/25/24 09:41 Resp 14 09/25/24 09:41 BP 109/84 09/25/24 09:41 Pulse Ox 97 09/25/24 09:41 O2 Del Method Room Air 09/25/24 09:41 Allergies Allergy/AdvReac Type Severity Reaction Status Date / Time No Known Allergies Allergy Verified 09/22/24 09:48 Home Medications ?Medication ?Instructions ?Recorded ?Confirmed ?Type apixaban 5 mg tablet (Eliquis) 5 mg PO BID 09/22/24 09/22/24 History atorvastatin 20 mg tablet 20 mg PO DAILY 09/22/24 09/22/24 History dapagliflozin propanediol 10 mg 10 mg PO DAILY 09/22/24 09/22/24 History tablet (Farxiga) digoxin 250 mcg (0.25 mg) tablet 0.25 mg PO DAILY 09/22/24 09/22/24 History folic acid 1 mg tablet 1 mg PO DAILY 09/22/24 09/22/24 History furosemide 40 mg tablet 40 mg PO DAILY 09/22/24 09/22/24 History metoprolol tartrate 50 mg tablet 50 mg PO BID 09/22/24 09/22/24 History oxycodone-acetaminophen 10 mg-325 1 tablet PO Q4H PRN pain 09/22/24 09/22/24 History mg tablet spironolactone 25 mg tablet 25 mg PO DAILY 09/22/24 09/22/24 History thiamine HCl (vitamin B1) 100 mg 100 mg PO DAILY 09/22/24 09/22/24 History capsule Laboratory Tests 09/25/24 09:36 Sodium 137 mmol/L (137-145) Potassium 4.2 mmol/L (3.4-5.0) Chloride 99 mmol/L (98-107) Carbon Dioxide 28 mmol/L (22-30) Anion Gap 10 mmol/L (4-12) BUN 10 mg/dL (9-20) Creatinine 0.55 L mg/dL (0.7-1.3) Estim Creat Clear Calc 193 ml/min Estimated GFR > 60 (59 - ) Glucose 154 H mg/dL (65-110) Calcium 9.2 mg/dL (8.4-10.2) Magnesium 1.8 mg/dL (1.6-2.3) Patient hx anesthesia problems: none Family hx anesthesia problems: none Results Review: All pre-operative results and documents have been reviewed as part of the pre- operative evaluation. [facility] Social History Social History Smoking status: Never smoker Second hand tobacco smoke exposure: No Alcohol intake: current Substance use: never Substance use type: does not use Living arrangements: with family Spiritual care concerns: No Anes - Eval Final PreProcedure Day of Procedure 09/25/24 10:39 Patient weight: morbidly obese Heart: regular rate and rhythm Lungs: clear to auscultation Airway: Mallampati scale class III Neurological: alert and oriented Last oral intake: >/= 8 hours ASA classification: IV Emergent: no Anesthetic plan: proceed Anesthesia type and monitoring: general GIVS and standard monitoring Results Review: All pre-operative results and documents have been reviewed as part of the pre- operative evaluation. Informed Consent: The patient's anesthetic plan and its attendant risks and benefits were discussed with the patient/family/POA. Questions were solicited and answers provided to the satisfaction of the patient/family/POA.
--- NOTE | 2024-09-25 10:40 | P.PCNCVR_ITS ---
Cardioversion Cardioversion Date of procedure: 09/25/24 Procedure: Outpatient elective cardioversion Pre-op diagnosis: Atrial fibrillation Post-op diagnosis: Same Indications: Atrial fibrillation Description of procedure: After discuss the risks, benefits alternatives to patient agreeable via the rule and written informed consent. Risks discussed included , adverse reaction to anesthesia, bleeding, pain, infection, skin irritation or burn, shocking into more problematic heart rhythm, stroke. Anterior-posterior defibrillator pads w ere placed and after establishing continuous telemetry monitoring of pulse oxygenation serial blood pressure assessments time-out was taken procedure was started. Procedure start time 10:15 a.m. procedure start time 10:18 a.m.. Complications: None Blood loss: None Madelin Hernandez Monitored patient Sedation: Etomidate with the assistance of Anesthesia. See separate report Findings: After confirming atrial fibrillation, 200 joules of biphasic synchronized energy was utilized to restore sinus rhythm from atrial fibrillation. Conclusion: 1. Successful confucianist of sinus rhythm using 200 joules synchronized biphasic energy
[2024-09-25 10:45] VITALS: BP 109/75; PULSE 75; RESP 18; O2SAT 97
[2024-09-25 11:00] VITALS: BP 111/69; PULSE 79; RESP 14; O2SAT 97
[2024-09-25 11:15] VITALS: BP 113/78; PULSE 82; RESP 15; O2SAT 95
== END 2024-09-25 11:30 | disposition home or self-care (01) ==
PROVIDERS: Visit Provider Internal Medicine Cardiovascular Disease
PROC: 5A2204Z Restoration of Cardiac Rhythm, Single (ICD-10-PCS; principal; 2024-09-25 10:30)
DX: I48.0 Paroxysmal atrial fibrillation (principal); I42.8 Other cardiomyopathies; I10 Essential (primary) hypertension; E11.59 Type 2 diabetes mellitus with other circulatory complications; E11.69 Type 2 diabetes mellitus with other specified complication; I15.2 Hypertension secondary to endocrine disorders; E78.5 Hyperlipidemia, unspecified; K21.9 Gastro-esophageal reflux disease without esophagitis; G62.9 Polyneuropathy, unspecified; L40.9 Psoriasis, unspecified; R55 Syncope and collapse; G47.33 Obstructive sleep apnea (adult) (pediatric); E66.01 Morbid (severe) obesity due to excess calories; Z68.41 Body mass index [BMI] 40.0-44.9, adult; Z79.01 Long term (current) use of anticoagulants; Z79.84 Long term (current) use of oral hypoglycemic drugs; Z79.891 Long term (current) use of opiate analgesic; Z99.89 Dependence on other enabling machines and devices; Z98.890 Other specified postprocedural states; Z80.42 Family history of malignant neoplasm of prostate; Z82.49 Family history of ischemic heart disease and other diseases of the circulatory system
CPT/HCPCS: 36415; 80048; 83735; 92960; J7030